=== PATIENT | female | born 1975 | race Caucasian/White ===

== ENCOUNTER 2017-12-08 08:30 | Emergency (ER) | payer BC ==
[2017-12-08 09:00] VITALS: BP 122/87
--- NOTE | 2017-12-08 09:34 | RAD ---
INDICATION: Pain post fall today. COMPARISON: No relevant prior exams available on the [facility] for comparison. TECHNIQUE: AP, lateral, and oblique views RIGHT elbow. REPORT: Normal articular alignment. Negative for fat pad displacement to indicate effusion. No cortical disruption or suspicious trabecular irregularity to suggest fracture. Unremarkable soft tissue contours. IMPRESSION: Negative radiographic exam of the RIGHT elbow.
--- NOTE | 2017-12-08 09:36 | RAD ---
Indication: RIGHT shoulder pain post fall today. Comparison: No relevant prior exams available on the [facility] [place] PACS for comparison. Technique: Internal rotation AP, external rotation Grashey, scapular Y, axillary views RIGHT shoulder Report: Normal acromioclavicular and glenohumeral joint alignment. No cortical disruption or suspicious trabecular irregularity to suggest fracture. No significant arthropathic change evident. Unremarkable soft tissue contours. IMPRESSION: Negative radiographic exam of the RIGHT shoulder.
--- NOTE | 2017-12-08 09:51 | UC ---
Shoulder Pain HPI - HPI Summary HPI Summary: RIGHT SHOULDER PAIN X 3 HRS S/P FALL THIS MORNING, LANDED ON HER RIGHT SHOULDER AND RIGHT ELBOW + PAIN AND SWELLING OF RIGHT SHOULDER AND RIGHT ELBOW - History of Current Complaint Chief Complaint: UCUpperExtremity Stated Complaint: RT SHOULDER/ARM PAIN Time Seen by Provider: 12/08/17 09:01 Hx Obtained From: Patient Hx Last Menstrual Period: 11/17/17 ?: No Onset/Duration: Sudden Onset, Lasting Hours - 3 Timing: Constant Severity Initially: Moderate Severity Currently: Moderate Character: Aching, Throbbing Aggravating Factor(s): Movement, Lifting, Flexion Alleviating Factor(s): Rest Associated Signs And Symptoms: Positive: Swelling, Weakness. Negative: Redness , Bruising, Fever, Numbness/Tingling - Allergies/Home Medications Allergies/Adverse Reactions: Allergies Allergy/AdvReac Type Severity Reaction Status Date / Time No Known Allergies Allergy Verified 12/08/17 09:00 PMH/Surg Hx/FS Hx/Imm Hx - Additional Past Medical History Additional PMH: PMHX OF MS - Surgical History Surgical History: Yes Surgery Procedure, Year, and Place: appy as young adult; tubal ligation 2002 - Family History Known Family History: Negative: Diabetes - Social History Alcohol Use: Rare Substance Use Type: None Smoking Status (MU): Heavy Every Day Tobacco Smoker Review of Systems Constitutional: Negative Skin: Negative Eyes: Negative ENT: Negative Respiratory: Negative Cardiovascular: Negative Is Patient Immunocompromised?: No All Other Systems Reviewed And Are Negative: Yes Physical Exam Triage Information Reviewed: Yes Appearance: Well-Nourished, Pain Distress Vital Signs: Initial Vital Signs Temp 99.9 F 12/08/17 08:54 Pulse 80 12/08/17 08:54 Resp 18 12/08/17 08:54 BP 122/87 12/08/17 08:54 Vital Signs Reviewed: Yes Eyes: Positive: Conjunctiva Clear ENT: Positive: Normal ENT inspection, Hearing grossly normal, Pharynx normal Neck exam: Normal Neck: Positive: Supple, Nontender, No Lymphadenopathy Respiratory Exam: Normal Respiratory: Positive: Chest non-tender, Lungs clear, Normal breath sounds Cardiovascular: Positive: RRR, No Murmur, Pulses Normal Musculoskeletal: Positive: Other: - RIGHT SHOULDER: + DIFFUSE THENDERNESS, NO SWELLING, PAIN WITH FLEXION AND EXTENSION , LIMITED STRENGTH RIGHT ELBOW: NO SWELLIN, NO ERYTHEMA, + DIFFUSE TENDERNESS, GOOD ROM Shoulder Course/Dx - Differential Dx/Diagnosis Provider Diagnoses: CONTUSION RIGHT SHOULDER. CONTUSION RIGHT ELBOW Discharge - Discharge Plan Condition: Stable Disposition: HOME Prescriptions: Naproxen [Naproxen 500 mg] 500 mg PO BID #20 tab Patient Education Materials: Contusion in Adults (ED), Shoulder Sprain (ED) Forms: *Work Release Referrals: Ginna Duke MD [Primary Care Provider] - 7 Days
== END 2017-12-08 09:53 | disposition home or self-care (01) ==
LOC: UCCORT 08:30
DX: S40.011A Contusion of right shoulder, initial encounter (principal); S50.01XA Contusion of right elbow, initial encounter; W19.XXXA Unspecified fall, initial encounter; Y93.9 Activity, unspecified; Y92.9 Unspecified place or not applicable; G35 Multiple sclerosis; F17.210 Nicotine dependence, cigarettes, uncomplicated
CPT/HCPCS: 99213; G0463

== ENCOUNTER 2018-10-01 15:54 | Emergency (ER) | payer BC ==
[2018-10-01 16:16] VITALS: BP 136/67
--- NOTE | 2018-10-01 16:49 | UC ---
Throat Pain/Nasal Ashutosh HPI - HPI Summary HPI Summary: Pt c/o sinus congestion, sinus pressure and pain, cough, ST, and left ear pain X 6 days. . - History of Current Complaint Chief Complaint: UCGeneralIllness Stated Complaint: SORE THROAT,COUGH,CONGESTION Time Seen by Provider: 10/01/18 16:17 Hx Obtained From: Patient Hx Last Menstrual Period: 09/20/18 ?: No Onset/Duration: Sudden Onset, Lasting Days, Still Present Severity: Moderate Pain Intensity: 6 Cough: Nonproductive Associated Signs & Symptoms: Positive: Sinus Discomfort, Nasal Discharge - Epiglottits Risk Factors Epiglottis Risk Factors: Negative - Allergies/Home Medications Allergies/Adverse Reactions: Allergies Allergy/AdvReac Type Severity Reaction Status Date / Time No Known Allergies Allergy Verified 10/01/18 16:16 PMH/Surg Hx/FS Hx/Imm Hx Previously Healthy: Yes - Surgical History Surgical History: Yes Surgery Procedure, Year, and Place: appy as young adult; tubal ligation 2002 - Family History Known Family History: Negative: Diabetes - Social History Occupation: Employed Full-time Lives: With Family Alcohol Use: Rare Substance Use Type: None Smoking Status (MU): Heavy Every Day Tobacco Smoker Have You Smoked in the Last Year: No Review of Systems All Other Systems Reviewed And Are Negative: Yes Constitutional: Positive: Chills, Fatigue Skin: Positive: Negative Eyes: Positive: Negative ENT: Positive: Sore Throat, Ear Ache, Sinus Congestion, Sinus Pain/Tenderness Respiratory: Positive: Cough Cardiovascular: Positive: Negative Gastrointestinal: Positive: Negative Genitourinary: Positive: Negative Motor: Positive: Negative Neurovascular: Positive: Negative Musculoskeletal: Positive: Negative Neurological: Positive: Headache Psychological: Positive: Negative Is Patient Immunocompromised?: No Physical Exam Triage Information Reviewed: Yes Appearance: Ill-Appearing Vital Signs: Initial Vital Signs Temp 98.4 F 10/01/18 16:13 Pulse 90 10/01/18 16:13 Resp 18 10/01/18 16:13 BP 136/67 10/01/18 16:13 Pulse Ox 99 10/01/18 16:13 Vital Signs Reviewed: Yes Eye Exam: Normal ENT: Positive: Pharyngeal erythema, Nasal congestion, TM bulging, Sinus tenderness Dental Exam: Normal Neck exam: Normal Respiratory Exam: Normal Cardiovascular Exam: Normal Musculoskeletal Exam: Normal Neurological Exam: Normal Psychological Exam: Normal Skin Exam: Normal Throat Pain/Nasal Course/Dx - Differential Dx/Diagnosis Differential Diagnosis/HQI/PQRI: Pharyngitis, Sinusitis, URI Provider Diagnoses: sinusitis Discharge - Sign-Out/Discharge Documenting (check all that apply): Patient Departure All imaging exams completed and their final reports reviewed: No Studies - Discharge Plan Condition: Stable Disposition: HOME Prescriptions: Amoxicillin PO (*) [Amoxicillin 875 MG (*)] 875 mg PO Q12H #20 tab Patient Education Materials: Sinusitis (ED) Referrals: Ginna Duke MD [Primary Care Provider] - 4 Days - Billing Disposition and Condition Condition: STABLE Disposition: Home
== END 2018-10-01 16:59 | disposition home or self-care (01) ==
LOC: UCCORT 15:54
DX: J32.9 Chronic sinusitis, unspecified (principal); F17.200 Nicotine dependence, unspecified, uncomplicated
CPT/HCPCS: 99212; G0463